=== PATIENT | female | born 1955 | race Caucasian/White ===

== ENCOUNTER 2022-10-17 04:47 | Emergency (ER) | payer MEDICARE, OTHER ==
[~2022-10-17] VITALS: Ht 172.7 cm; Wt 94.3 kg
[2022-10-17 05:15] LABS: BASOPHILS # (AUTO) 0.1 10^3/uL (0.0-0.1); BASOPHILS % (AUTO) 1 % (0-10); EOSINOPHILS # (AUTO) 0.2 10^3/uL (0.0-0.3); EOSINOPHILS % (AUTO) 2 % (0-10); HEMATOCRIT 44 % (35-52); HEMOGLOBIN 14.9 g/dL (11.5-16.0); LYMPHOCYTES # (AUTO) 3.8 10^3/uL (1.0-4.0); LYMPHOCYTES % (AUTO) 41 % (12-44); MEAN CORPUSCULAR HEMOGLOBIN 31 pg (25-34); MEAN CORPUSCULAR HGB CONC 34 g/dL (32-36); MEAN CORPUSCULAR VOLUME 91 fL (80-99); MEAN PLATELET VOLUME 10.3 fL (9.0-12.2); MONOCYTES # (AUTO) 0.9 10^3/uL (0.0-1.0); MONOCYTES % (AUTO) 10 % (0-12); NEUTROPHILS # (AUTO) 4.3 10^3/uL (1.8-7.8); NEUTROPHILS % (AUTO) 46 % (42-75); PLATELET COUNT 278 10^3/uL (130-400); WHITE BLOOD COUNT 9.3 10^3/uL (4.3-11.0)
[2022-10-17] MEDS ORDERED: ASPIRIN 81 MG CHEW (CHILDREN'S ASA) PO ONE (05:15)
[2022-10-17] MEDS: NITROGLYCERIN 0.4 MG SL TABS BTL 25'S SL PRN ×2 (05:21→05:28)
[2022-10-17 05:22] LABS: ALBUMIN 4.3 GM/DL (3.2-4.5); POTASSIUM 3.7 MMOL/L (3.6-5.0)
[2022-10-17 05:23] LABS: CALCIUM 9.4 MG/DL (8.5-10.1)
[2022-10-17 05:24] LABS: TOTAL PROTEIN 7.5 GM/DL (6.4-8.2)
[2022-10-17 05:25] LABS: PROTHROMBIN TIME PATIENT 13.1 SEC (12.2-14.7)
[2022-10-17 05:26] LABS: BILIRUBIN,TOTAL 0.4 MG/DL (0.1-1.0)
[2022-10-17 05:31] LABS: MAGNESIUM 2.1 MG/DL (1.6-2.4)
[2022-10-17] MEDS ORDERED: fentaNYL INJ 100 MCG/2 ML AMP IVP STA (05:33)
--- NOTE | 2022-10-17 05:43 | ED Chest Pain ---
General Chief Complaint: Chest Pain Stated Complaint: CHEST TIGHTNESS Source: patient (KENDELL BANDA DO) History of Present Illness Date Seen by Provider: Oct 17, 2022 Time Seen by Provider: 05:17 Initial Comments PT ARRIVES VIA POV WITH A MALE PT STATES SHE WOKE UP AROUND 0300 WITH PAIN IN RIGHT SIDE OF CHEST, RIGHT BACK AND POSTERIOR RIB AREA, RADIATING TO MID CHEST AND EPIGASTRIC AREA RATES PAIN 4/10 AT THIS TIME. 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 SHE STOPPED HER EZETIMIBE 1 WEEK AGO, AND WAS STARTED ON A DIFFERENT MEDICATION FOR HIGH CHOLESTEROL SHE ALSO HAD HER THYROID MEDICATION ADJUSTED IN THE LAST WEEK. SHE HAS NEVER HAD ANY OTHER CARDIAC ISSUES. SHE HAS HAD PRIOR LEFT KNEE REPLACEMENT. SHE HAS HAD HYSTERECTOMY / BSO NO HISTORY OF GI PROBLEMS SHE IS HERE VISITING FROM [place], [place] FOR A IN [place]---DROVE FROM [place] YESTERDAY--6+ HOURS IN VEHICLE THEY ARE VISITING PT'S SON HERE IN [place]. (KENDELL BANDA DO) Allergies and Home Medications Allergies Coded Allergies: No Known Drug Allergies (Unverified , 10/17/22) Patient Home Medication List Home Medication List Reviewed: Yes (ZARINA HUDDLESTON MD) Hydrocodone/Acetaminophen (Hydrocodone-Acetamin 5-325 mg) 5 Mg-325 Mg Tablet, 1 TAB PO Q6H PRN for PAIN-MODERATE (5-7) Prescribed by: ZARINA HUDDLESTON on 10/17/22 0706 Ondansetron (Ondansetron Odt) 4 Mg Tab.rapdis, 4 MG SL Q6H PRN for N AUSEA/VOMITING Prescribed by: ZARINA HUDDLESTON on 10/17/22 0705 Review of Systems Review of Systems Constitutional: no symptoms reported EENTM: No Symptoms Reported Respiratory: See HPI Cardiovascular: See HPI Gastrointestinal: See HPI Genitourinary: No Symptoms Reported Musculoskeletal: see HPI Skin: no symptoms reported Psychiatric/Neurological: No Symptoms Reported Endocrine: No Symptoms Reported Hematologic/Lymphatic: No Symptoms Reported (VERONIKAKENDELL Naveen PADRON) Past Nxtxlab-Qlqpxc-Hgxkkh Hx Patient Social History Tobacco Use?: No Substance use?: No Alcohol Use?: Yes Alcohol Frequency: Once in a while (VERONIKAKENDELL Naveen PADRON) Past Medical History Surgeries: Yes (LEFT KNEE REPLACEMENT; HYST/BSO) Hysterectomy, Joint Replacement, Oophorectomy, Orthopedic Respiratory: No Cardiac: Yes (PVC'S) High Cholesterol, Hypertension 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 oz. kg; BMI Method: General Appearance: WD/WN, Anxious, Other (LOOKS UNCOMFORTABLE) HEENT: PERRL/EOMI; No Pale Conjunctivae (L), No Pale Conjunctivae (R), No Scleral Icterus (L), No Scleral Icterus (R) Neck: Full Range of Motion, Normal Inspection, Non Tender, Supple; No Carotid Bruit, No JVD Respiratory: Chest Non Tender, Normal Breath Sounds, No Accessory Muscle Use, No Respiratory Distress Cardiovascular: Regular Rate, Rhythm, No Edema, No JVD, No Murmur, Normal Peripheral Pulses Gastrointestinal: Normal Bowel Sounds, Soft, Tenderness (MODERATE EPIGASTRIC TENDERNESS, MILD RUQ TENDERNESS. ) Extremity: Normal Capillary Refill, Normal Inspection, Normal Range of Motion, Non Tender, No Calf Tenderness, No Pedal Edema Neurologic/Psychiatric: Alert, Oriented x3, No Motor/Sensory Deficits, intelligence analyst II- XII Norm as Tested Skin: Normal Color, Warm/Dry; No Rash (VERONIKAKENDELL Naveen PADRON) Progress/Results/Core Measures Results/Orders Lab Results Laboratory Tests Test 10/17/22 05:05 10/17/22 05:10 Range/Units White Blood Count 9.3 4.3-11.0 10^3/uL Red Blood Count 4.86 3.80-5.11 10^6/uL Hemoglobin 14.9 11.5-16.0 g/dL Hematocrit 44 35-52 % Mean Corpuscular Volume 91 80-99 fL Mean Corpuscular Hemoglobin 31 25-34 pg Mean Corpuscular Hemoglobin Concent 34 32-36 g/dL Red Cell Distribution Width 12.3 10.0-14.5 % Platelet Count 278 130-400 10^3/uL Mean Platelet Volume 10.3 9.0-12.2 fL Immature Granulocyte % (Auto) 0 % Neutrophils (%) (Auto) 46 42-75 % Lymphocytes (%) (Auto) 41 12-44 % Monocytes (%) (Auto) 10 0-12 % Eosinophils (%) (Auto) 2 0-10 % Basophils (%) (Auto) 1 0-10 % Neutrophils # (Auto) 4.3 1.8-7.8 10^3/uL Lymphocytes # (Auto) 3.8 1.0-4.0 10^3/uL Monocytes # (Auto) 0.9 0.0-1.0 10^3/uL Eosinophils # (Auto) 0.2 0.0-0.3 10^3/uL Basophils # (Auto) 0.1 0.0-0.1 10^3/uL Immature Granulocyte # (Auto) 0.0 0.0-0.1 10^3/uL Prothrombin Time 13.1 12.2-14.7 SEC INR Comment 1.0 0.8-1.4 Activated Partial Thromboplast Time 34 24-35 SEC D-Dimer 0.51 H 0.00-0.49 UG/ML Sodium Level 141 135-145 MMOL/L Potassium Level 3.7 3.6-5.0 MMOL/L Chloride Level 106 98-107 MMOL/L Carbon Dioxide Level 25 21-32 MMOL/L Anion Gap 10 5-14 MMOL/L Blood Urea Nitrogen 18 7-18 MG/DL Creatinine 1.00 0.60-1.30 MG/DL Estimat Glomerular Filtration Rate 62 BUN/Creatinine Ratio 18 Glucose Level 114 H 70-105 MG/DL Calcium Level 9.4 8.5-10.1 MG/DL Corrected Calcium 9.2 8.5-10.1 MG/DL Magnesium Level 2.1 1.6-2.4 MG/DL Total Bilirubin 0.4 0.1-1.0 MG/DL Aspartate Amino Transf (AST/SGOT) 21 5-34 U/L Alanine Aminotransferase (ALT/SGPT) 34 0-55 U/L Alkaline Phosphatase 84 40-136 U/L Total Creatine Kinase 78 29-168 U/L Creatine Kinase MB 1.0 <6.6 NG/ML Myoglobin 28.5 10.0-92.0 NG/ML Troponin I < 0.028 <0.028 NG/ML B-Type Natriuretic Peptide 75.0 <100.0 PG/ML Total Protein 7.5 6.4-8.2 GM/DL Albumin 4.3 3.2-4.5 GM/DL Amylase Level 57 25-125 U/L Lipase 43 8-78 U/L TSH [place] Testing 2.41 0.35-4.94 UIU/ML Influenza Type A (RT-PCR) Not Detected Not Detecte Influenza Type B (RT-PCR) Not Detected Not Detecte SARS-CoV-2 RNA (RT-PCR) Not Detected Not Detecte (ZARINA HUDDLESTON MD) My Orders Orders - ZARINA HUDDLESTON MD Ekg Tracing (10/17/22 05:10) (ZARINA HUDDLESTON MD) Medications Given in ED Current Medications Medications Dose Ordered Sig/Erlinda Route Start Time Stop Time Status Last Admin Dose Admin Aspirin 324 mg ONCE ONCE PO 10/17/22 05:15 10/17/22 05:16 DC 10/17/22 05:18 324 MG Iohexol 100 ml ONCE ONCE IV 10/17/22 06:30 10/17/22 06:31 DC 10/17/22 06:23 90 ML Nitroglycerin 1 TAB Q 5 MIN X 3 NEEDED PRN SL 10/17/22 05:15 10/17/22 07:33 DC 10/17/22 05:28 0.4 MG Ondansetron HCl 4 mg ONCE ONCE IVP 10/17/22 05:45 10/17/22 05:46 DC 10/17/22 05:46 4 MG Pantoprazole 40 mg ONCE ONCE IV 10/17/22 05:45 10/17/22 05:46 DC 10/17/22 05:40 40 MG Sodium Chloride 10 ml NEEDED PRN IV 10/17/22 06:30 3/14/23 07:33 DC 10/17/22 06:23 10 ML Sodium Chloride 100 ml ONCE ONCE IV 10/17/22 06:30 10/17/22 06:31 DC 10/17/22 06:23 80 ML (ZARINA HUDDLESTON MD) Vital Signs/I&O 10/17/22 10/17/22 10/17/22 05:00 05:00 07:28 Temp 37.0 37.0 Pulse 77 57 Resp 16 16 B/P (MAP) 176/82 (113) 127/73 Pulse Ox 98 98 O2 Delivery Room Air Room Air Room Air (ZARINA HUDDLESTON MD) Progress Progress Note : Progress Note CHEST PAIN PROTOCOL INITIATED GIVEN: -ASPIRIN -NTG X 2--NO RELIEF -FENTANYL -ZOFRAN -PROTONIX COMPLETE RELIEF OF SYMPTOMS WITH THE ABOVE. VITALS STABLE NO PRIOR VISITS HERE. 0600--CARE TURNED OVER TO DR. HUDDLESTON, CT PENDING. (KENDELL BANDA DO) Progress Note : Progress Note Received the patient in signout pending her CT imaging. This was concerning for gallstones without evidence of cholecystitis. Additionally, she does not have any elevation in her liver enzymes. I did a repeat abdominal exam, and at this time she is completely pain-free and has a negative Eric sign. She is not showing any signs clinically of cholecystitis. I discussed these findings with the patient, and discussed that she likely has symptomatic cholelithiasis. I will send a prescription for pain medications and nausea medicines. She is going back home to [place] tomorrow, and she will contact a surgeon there. I discussed if things worsen prior to that, she can always come back to the ER here. (ZARINA HUDDLESTON MD) Initial ECG Impression Date: Oct 17, 2022 Initial ECG Impression Time: 05:14 Initial ECG Rate: 70 Initial ECG Rhythm: Normal Sinus (PVC'S) Initial ECG Comparisson: No Previous ECG Available (KENDELL BANDA DO) Diagnostic Imaging Diagonstic Imaging: CT (CTA chest, abd/pelvis) Comments NAME: KARO SCHRADER MED REC#: [id number] PT STATUS: REG ER : 1955 PHYSICIAN: KENDELL BANDA DO ADMIT DATE: 10/17/22/ER Draft Date of Exam:10/17/22 CT BEVERLEY CHEST/NOANG ABD-PELV W EXAM: CT BEVERLEY CHEST/NOANG ABD-PELV W 3D reconstructions including MIPs of the angiographic images were performed and reviewed. INDICATION: Chest pain. Nausea. COMPARISON: Chest radiograph 10/17/2022. FINDINGS: CTA CHEST: No pulmonary emboli. Normal caliber thoracic aorta. Normal heart size. No pericardial effusion. No lymphadenopathy. The lung bases are clear. No pleural effusion or pneumothorax. No acute osseous findings. CT abdomen and pelvis: Cholelithiasis without secondary findings of cholecystitis. The liver, pancreas, spleen, adrenals, kidneys, collecting systems and bladder are negative. Hysterectomy. Appendectomy. No free intraperitoneal air or fluid. No lymphadenopathy. No evidence of bowel obstruction. No acute osseous findings. IMPRESSION: 1. No pulmonary emboli. 2. No acute CT findings in the chest, abdomen or pelvis. 3. Cholelithiasis without evidence of cholecystitis. Dictated on workstation # [id number] Dict: 10/17/22 0628 Trans: 10/17/22 0637 [facility] [id number] Interpreted by: EIMLY POSADAS MD Electronically signed by: (ZARINA HUDDLESTON MD) Departure Impression Primary Impression: Symptomatic cholelithiasis Disposition: 01 HOME, SELF-CARE Condition: Improved Departure-Patient Inst. Decision time for Depature: 07:02 (ZARINA HUDDLESTON MD) Referrals: NO,LOCAL PHYSICIAN (PCP/Family) Primary Care Physician Patient Instructions: Gallstones (DC) Add. Discharge Instructions: You do have a lot of gallstones which we think is the reason for your pain earlier. Try to decrease fatty or greasy foods as this can make it worse. Hydrocodone was sent to the [facility] across the street as well as Zofran to help with nausea. Please follow-up with the surgeon as soon as possible back home. If things get worse before you leave town, of course she could always come back here. Specifically be looking out for worsening pain that is not better with the hydrocodone, vomiting, or fever. This is the CT read to show your doctor: FINDINGS: CTA CHEST: No pulmonary emboli. Normal caliber thoracic aorta. Normal heart size. No pericardial effusion. No lymphadenopathy. The lung bases are clear. No pleural effusion or pneumothorax. No acute osseous findings. CT abdomen and pelvis: Cholelithiasis without secondary findings of cholecystitis. The liver, pancreas, spleen, adrenals, kidneys, collecting systems and bladder are negative. Hysterectomy. Appendectomy. No free intraperitoneal air or fluid. No lymphadenopathy. No evidence of bowel obstruction. No acute osseous findings. IMPRESSION: 1. No pulmonary emboli. 2. No acute CT findings in the chest, abdomen or pelvis. 3. Cholelithiasis without evidence of cholecystitis. Scripts Ondansetron (Ondansetron Odt) 4 Mg Tab.rapdis 4 MG SL Q6H PRN for NAUSEA/VOMITING for 5 Days, #20 TAB Prov: ZARINA HUDDLESTON MD 10/17/22 Hydrocodone/Acetaminophen (Hydrocodone-Acetamin 5-325 mg) 5 Mg-325 Mg Tablet 1 TAB PO Q6H PRN for PAIN-MODERATE (5-7) for 3 Days, #12 TAB Prov: ZARINA HUDDLESTON MD 10/17/22 Work/School Note: Work Release Form Date Seen in the Emergency Department: Oct 17, 2022 Return to Work: Oct 18, 2022 Restrictions: No Restrictions KENDELL BANDA DO Oct 17, 2022 05:43 ZARINA HUDDLESTON MD Oct 17, 2022 06:48
[2022-10-17] MEDS ORDERED: PANTOPRAZOLE 40 MG (PROTONIX) VIAL IV ONE (05:45)
[2022-10-17] MEDS ORDERED: ONDANSETRON 4 MG/2 ML (SDV) Z0FRAN IVP ONE (05:45)
[2022-10-17 05:52] LABS: TSH (THYROID ANALYZER) 2.41 UIU/ML (0.35-4.94)
--- NOTE | 2022-10-17 06:16 | Diagnostic Imaging Report ---
EXAM: CHEST 1 VIEW, AP/PA ONLY INDICATION: Chest pain. COMPARISON: None. FINDINGS: Normal heart size and central pulmonary vascularity. Lungs are clear. No pleural effusion or pneumothorax. No acute osseous findings. IMPRESSION: No acute cardiopulmonary findings. Dictated by: Dictated on workstation # [id number]
[2022-10-17] MEDS ORDERED: IOHEXOL 350 MG/ML 100 ML (OMNIPAQUE 350) VIAL IV ONE (06:30)
[2022-10-17] MEDS ORDERED: CATHETER FLUSH 10 ML SYR IV PRN (06:30)
[2022-10-17] MEDS ORDERED: NS 100 ML (IVPB) BAG IV ONE (06:30)
--- NOTE | 2022-10-17 06:38 | Diagnostic Imaging Report ---
EXAM: CT BEVERLEY CHEST/NOANG ABD-PELV W 3D reconstructions including MIPs of the angiographic images were performed and reviewed. INDICATION: Chest pain. Nausea. COMPARISON: Chest radiograph 10/17/2022. FINDINGS: CTA CHEST: No pulmonary emboli. Normal caliber thoracic aorta. Normal heart size. No pericardial effusion. No lymphadenopathy. The lung bases are clear. No pleural effusion or pneumothorax. No acute osseous findings. CT abdomen and pelvis: Cholelithiasis without secondary findings of cholecystitis. The liver, pancreas, spleen, adrenals, kidneys, collecting systems and bladder are negative. Hysterectomy. The appendix is not identified and may be surgically absent. No suspicious inflammatory findings in the region of the cecum. No free intraperitoneal air or fluid. No lymphadenopathy. No evidence of bowel obstruction. No acute osseous findings. IMPRESSION: 1. No pulmonary emboli. 2. No acute CT findings in the chest, abdomen or pelvis. 3. Cholelithiasis without evidence of cholecystitis. Dictated by: Dictated on workstation # [id number]
[2022-10-17] MEDS ORDERED: ONDA4TAB11 SL (07:05)
[2022-10-17] MEDS ORDERED: ACHD5005 PO (07:05)
[2022-10-17 07:28] VITALS: BP 127/73
== END 2022-10-17 07:28 | disposition home or self-care (01) ==
LOC: ER 04:52
DX: K80.20 Calculus of gallbladder without cholecystitis without obstruction (principal); E66.9 Obesity, unspecified; Z68.31 Body mass index [BMI] 31.0-31.9, adult; Z20.822 Contact with and (suspected) exposure to COVID-19; Z28.310 Unvaccinated for COVID-19
CPT/HCPCS: 36415; 71045; 71275; 74177; 80053; 82150; 82550; 82553; 83690; 83735; 83874; 83880; 84443; 84484; 85025; 85379; 85610; 85730; 87636; 93005; 93041